=== PATIENT | female | born 1985 | race Caucasian/White ===

== ENCOUNTER 2018-12-26 06:02 | Day surgery (SDC) | payer MEDICAID, BC ==
[~2018-12-26] VITALS: Ht 170.2 cm; Wt 86.2 kg
[~2018-12-26 06:02] MED LIST: LACTATED RINGERS 1,000 ML IV SCH
[2018-12-26] MEDS ORDERED: PROPOFOL 200MG/20ML VIAL IV ONE (07:42)
[2018-12-26] MEDS ORDERED: FENTANYL CITRATE/PF 50MCG/ML 2ML VIAL ONE (07:42)
[2018-12-26] MEDS ORDERED: MIDAZOLAM HCL 2 MG/2 ML VIAL ONE (07:42)
[2018-12-26] MEDS ORDERED: GLYCOPYRROLATE 0.2 MG/ML 2ML VIAL ONE (07:44)
[2018-12-26] MEDS ORDERED: CEFAZOLIN SODIUM 1000MG/VIAL ONE (08:03)
[2018-12-26] MEDS ORDERED: KETOROLAC 30MG/ML VIAL ONE (08:17)
[2018-12-26] MEDS ORDERED: ONDANSETRON HCL 4MG/2ML INJ ONE (08:17)
[2018-12-26] MEDS ORDERED: METOCLOPRAMIDE HCL 10MG/2ML VIAL ONE (08:17)
[2018-12-26] MEDS ORDERED: DEXT 5%/0.45% NACL KCL 20MEQ/L 1,000 ML IV SCH (08:30)
[2018-12-26] MEDS ORDERED: KETOROLAC 60MG/2ML VIAL IM ONE (08:30)
[2018-12-26] MEDS ORDERED: ONDANSETRON HCL 4MG/2ML INJ IV PRN (08:30)
[2018-12-26] MEDS ORDERED: IBUP-2029 MT (08:40)
== END 2018-12-26 10:20 | disposition home or self-care (01) ==
LOC: OR 06:02
PROVIDERS: ATTEND Specialist
DX: T83.39XA Other mechanical complication of intrauterine contraceptive device, initial encounter (principal); Z79.899 Other long term (current) drug therapy; X58.XXXA Exposure to other specified factors, initial encounter; Y93.89 Activity, other specified; Y92.89 Other specified places as the place of occurrence of the external cause; Y99.8 Other external cause status
CPT/HCPCS: 58555; J0690; J1885; J2250; J2405; J2704; J2765; J3010; J3490